=== PATIENT | male | born 1950 | race Caucasian/White ===

== ENCOUNTER 2025-07-22 20:04 | Emergency (ER) | payer MEDICARE ==
[2025-07-22 21:14] LABS: #Basophils 0.2 thou/uL (0.0-0.2); #Eosinophils 0.3 thou/uL (0.0-0.7); #Lymphocytes 3.4 thou/uL (1.20-3.40); #Monocytes 1.0 thou/uL (0.11-0.59); #Neutrophils 6.2 thou/uL (1.40-6.50); %Basophils 1.4 % (0.0-1.0); %Eosinophils 2.7 % (0.0-10.0); %Lymphocytes 30.7 % (21.0-51.0); %Monocytes 8.8 % (0.0-10.0); %Neutrophils 56.4 % (42.0-75.0); Hematocrit 46.6 % (42.0-52.0); Hemoglobin 15.4 g/dL (14.0-18.0); Mean Corpuscular Hemoglobin 31.4 pg (27.0-31.0); Mean Corpuscular Volume 95.2 fl (78.0-98.0); Platelet Count 219 10x3/uL (130-400); Red Blood Cell (RBC) Count 4.89 mill/uL (4.70-6.10); White Blood Cell (WBC) Count 11.0 10x3/uL (4.8-10.8)
[2025-07-22 21:22] LABS: INR-International Normal Ratio 1.1; PTT 29.2 sec (22.9-36.1); Prothrombin Time 14.0 sec (12.0-14.7)
[2025-07-22 21:32] LABS: ALT (SGPT) 21 U/L (Less than 45); AST (SGOT) 22 U/L (11-34); Albumin 4.2 g/dL (3.1-4.5); Alkaline Phosphatase 71 U/L (40-110); Anion Gap 18 mmol/L (10-20); BUN (Urea Nitrogen) 24 mg/dL (8.4-25.7); Bilirubin, Total 0.6 mg/dL (0.3-1.2); Calc. Creatinine Clearance 0 mL/min (70-130); Calcium 9.2 mg/dL (7.8-10.44); Carbon Dioxide 19 mmol/L (23-31); Chloride 106 mmol/L (98-107); Globulin 3.2 g/dL (2.4-3.5); Glucose 113 mg/dL (83-110); Potassium 4.5 mmol/L (3.5-5.1); Sodium 138 mmol/L (136-145)
[2025-07-22 21:33] LABS: Troponin I Less than 0.010 ng/mL (< 0.028)
== END 2025-07-22 23:14 | disposition home or self-care (01) ==
LOC: MADERS 20:04
DX: E66.01 Morbid (severe) obesity due to excess calories (principal); I25.10 Atherosclerotic heart disease of native coronary artery without angina pectoris; I10 Essential (primary) hypertension; R20.0 Anesthesia of skin; E78.5 Hyperlipidemia, unspecified; Z79.899 Other long term (current) drug therapy
CPT/HCPCS: 70450; 71045; 80053; 84484; 85025; 85610; 85730; 93005; 94760